=== PATIENT | male | born 1960 | race Caucasian/White ===

== ENCOUNTER 2019-01-12 01:00 | Emergency (ER) | payer OTHER ==
[~2019-01-12] VITALS: Ht 182.9 cm; Wt 91.8 kg
[2019-01-12 01:07] VITALS: Ht 182.9 cm; Wt 91.8 kg
[2019-01-12] MEDS ORDERED: SOD CHLORIDE 0.9% 500 ML IV STA (01:25)
[2019-01-12 04:19] VITALS: BP 109/63; PULSE 70; RESP 16
--- NOTE | 2019-02-10 23:41 | ERD ---
ER Documentation Chief Complaint Chief Complaint dizziness/generalize body weakness x 4 hours. no neuro deficits HPI Is a 50-year-old male with dizziness generalized body weakness for 4 hours. He said he fell he was going to pass out. Denies any focal neurologic complaints. Denies chest pain nausea vomiting fevers chills. Denies any other current complaints. ROS All systems reviewed and are negative except as per history of present illness. Allergies Allergies: Coded Allergies: No Known Drug Allergies (Verified Allergy, Unknown, 01/12/19) PMhx/Soc History of Surgery: Yes (appendectomy) Hx Neurological Disorder: Yes (TIA) Hx Cardiac Disorders: Yes (cardiac stents, CAD, htn) Hx Alcohol Use: No Hx Substance Use: No Hx Tobacco Use: No Smoking Status: Never smoker Physical Exam Physical Exam Const: No acute distress Head: Atraumatic Eyes: Normal Conjunctiva ENT: Normal External Ears, Nose and Mouth. Neck: Full range of motion. No meningismus. Resp: Clear to auscultation bilaterally Cardio: Regular rate and rhythm, no murmurs Abd: Soft, non tender, non distended. Normal bowel sounds Skin: No petechiae or rashes Back: No midline or flank tenderness Ext: No cyanosis, or edema Neur: Awake and alert Psych: Normal Mood and Affect Results 24 hrs Laboratory Tests Test 01/12/19 01:30 White Blood Count 10.9 10^3/ul Red Blood Count 5.57 10^6/ul Hemoglobin 15.1 g/dl Hematocrit 46.8 % Mean Corpuscular Volume 84.0 fl Mean Corpuscular Hemoglobin 27.1 pg Mean Corpuscular Hemoglobin Concent 32.3 g/dl Red Cell Distribution Width 13.2 % Platelet Count 235 10^3/UL Mean Platelet Volume 9.9 fl Immature Granulocytes % 0.400 % Neutrophils % 68.4 % Lymphocytes % 22.7 % Monocytes % 5.7 % Eosinophils % 2.2 % Basophils % 0.6 % Nucleated Red Blood Cells % 0.0 /100WBC Immature Granulocytes # 0.040 10^3/ul Neutrophils # 7.5 10^3/ul Lymphocytes # 2.5 10^3/ul Monocytes # 0.6 10^3/ul Eosinophils # 0.2 10^3/ul Basophils # 0.1 10^3/ul Nucleated Red Blood Cells # 0.0 10^3/ul Sodium Level 143 mmol/L Potassium Level 4.2 mmol/L Chloride Level 109 mmol/L Carbon Dioxide Level 25 mmol/L Anion Gap 9 Blood Urea Nitrogen 15 mg/dl Creatinine 1.03 mg/dl Est Glomerular Filtrat Rate mL/min > 60 mL/min Glucose Level 131 mg/dl Calcium Level 9.0 mg/dl Total Bilirubin 0.8 mg/dl Direct Bilirubin 0.00 mg/dl Indirect Bilirubin 0.8 mg/dl Aspartate Amino Transf (AST/SGOT) 21 IU/L Alanine Aminotransferase (ALT/SGPT) 27 IU/L Alkaline Phosphatase 81 IU/L Troponin I < 0.012 ng/ml B-Type Natriuretic Peptide 173 PG/ML Total Protein 7.8 g/dl Albumin 4.1 g/dl Globulin 3.70 g/dl Albumin/Globulin Ratio 1.10 Current Medications Medications Dose Sig/Bharati Start Time Status Last (Trade) Ordered Route PRN Stop Time Admin Dose Reason Admin Sodium 500 ml @ Q1H STAT 01/12/19 DC 01/12/19 Chloride 500 mls/hr IV 01:25 01:50 01/12/19 02:24 Procedures/MDM EKG: Rate/Rhythm: [Normal Sinus Rhythm] QRS, ST, T-waves: [No changes consistent w/ acute ischemia] Impression: [No evidence of ischemia or arrhythmia] Chest X-ray 1V Interpreted by me: Soft Tissue: No acute abnormalities Bones: No acute abnormalities Mediastinum/Cardiac Silhouette/Lungs: [No acute abnormalities] Patient's syncopal symptoms are unstable at this time and require inpatient workup. No evidence of PE or dissection at this time but occult ischemia or fatal dysrhythmia cannot be ruled out. Patient is decided to sign AGAINST MEDICAL ADVICE. Patient is alert and oriented x4 with goal oriented speech and good decision-making capacity upon signing out AMA. Understands risks including possible due to condition Departure Diagnosis: Primary Impression: Dizziness Condition: Fair MARION ROY Feb 10, 2019 23:41
== END 2019-01-12 05:13 | disposition left against medical advice (07) ==
LOC: E/R 01:00
DX: R42 Dizziness and giddiness (principal); I25.10 Atherosclerotic heart disease of native coronary artery without angina pectoris; I10 Essential (primary) hypertension; Z86.73 Personal history of transient ischemic attack (TIA), and cerebral infarction without residual deficits; Z98.61 Coronary angioplasty status
CPT/HCPCS: 70450; 71045; 80053; 83880; 84484; 85025; 93005; J7040; 36415